=== PATIENT | female | born 1990 | race Caucasian/White ===

== ENCOUNTER 2020-04-06 03:52 | Inpatient (IN) | payer OTHER ==
[2020-04-06] MEDS ORDERED: ELECTROLYTE-148 SOLN 1,000 ML IV SCH (05:30)
[2020-04-06 05:38] LABS: BASO % 0.6 % (0-2.0); EOS % 0.8 % (0-4.5); HEMATOCRIT 37.3 % (32.4-45.2); HEMOGLOBIN 12.4 GM/dL (10.7-15.3); LYMPH % 29.2 % (8-40); MCHC 33.4 g/dl (32.0-36.0); MEAN CELL VOLUME 89.9 fl (80-96); MEAN PLT VOLUME 8.7 fl (7.5-11.1); MONO % 4.4 % (3.8-10.2); PLATELET COUNT 288 K/MM3 (134-434); RBC 4.15 M/mm3 (3.60-5.2); RDW 13.6 % (11.6-15.6); WHITE BLOOD COUNT 10.5 K/mm3 (4.0-10.0)
[2020-04-06 06:01] LABS: INR 0.91 (0.83-1.09); PROTHROMBIN TIME (PATIENT) 10.7 SEC (9.7-13.0)
[2020-04-06 06:04] LABS: ACTIVATED PTT 28.1 SECONDS (25.2-36.5)
[2020-04-06 06:06] VITALS: BMI 36.3
[2020-04-06 06:09] LABS: BLOOD UREA NITROGEN 14.8 mg/dL (7-18); CALCIUM 8.5 mg/dL (8.5-10.1); CREATININE 0.4 mg/dL (0.55-1.3); POTASSIUM 3.8 mmol/L (3.5-5.1)
[2020-04-06] MEDS ORDERED: NALOXONE HCL 0.4 MG/ML VIAL IVPUSH PRN (09:49)
[2020-04-06] MEDS ORDERED: FENTANYL/BUPIVACAINE/NS/PF - PCEA - 50 ML DISP.SYRIN EP SCH (10:00)
--- NOTE | 2020-04-06 10:58 | PD.OB.PROG ---
Past Medical History - Primary Care Physician Documenting Provider Type: Laborist - Admission Chief Complaint: pressure History of Present Illness: 30yo at term admitted in labor. Pt c/o increasing pressure and painful contractions - Nursing Documentation Maternal Triage Index: Maternal Triage Index ( Priority 4, Non-urgent MFTI) Maternal Triage Index ( Priority 4, Non-urgent MFTI) Hemorrhage Risk Assessment: Risk Level Low Risk High Level Risk Factors for None Hemorrhage Medium Level Risk Factors for None of the above Hemorrhage Low Level Risk Factors for No previous uterine incis Hemorrhage Nursing Documentation Reviewed: Yes - Past Medical History ...: 4 ...Para: 0 ...Term: 0 ...: 0 ...Spon : 3 ...Induced : 0 ...Living Children: 0 ...Multiple Gestation: 0 ...EDC by [facility]: 03/27/20 - Past Surgical History Past Surgical History: Yes: None - Smoking History Smoking history: Never smoked Have you smoked in the past 12 months: No - Alcohol/Substance Use Hx Alcohol Use: No Physical Exam - Obstetrical Vital Signs: Vital Signs Temperature 97.9 F 04/06/20 10:00 Pulse Rate 73 04/06/20 10:45 Respiratory Rate 18 04/06/20 10:45 Blood Pressure 119/67 04/06/20 10:45 O2 Sat by Pulse Oximetry (%) 99 04/06/20 10:45 - Abdominal Exam/OB Fundal Height: 40 Number of Fetuses: Single Presentation: Vertex Contractions: Yes Regularity: Regular Intensity: Moderate Monitor Mode: External Heart Rate (range): 135 Accelerations: Uniform Decelerations: None - Vaginal Exam/OB Vaginal Exam Deferred: No Speculum Exam: No Dilatation (cm): 4 Effacement (%): 80 Presentation: Vertex/Position Station: 0 - Physical Exam Musculoskeletal: Yes: WNL Extremities: Yes: WNL - Labs Lab Results: CBC, BMP 04/06/20 04:56 04/06/20 04:56 Assessment/Plan 30yo at 41+ weeks in labor desires epidural for pain category 1 tracing continue current care Dr[address] Lai aware Dr. Hanna
[2020-04-06] MEDS ORDERED: OXYTOCIN 30 UNITS in 0.9% NS 30 UNIT/500 ML INFUS.BAG IVPB SCH (11:30)
--- NOTE | 2020-04-06 11:32 | HP ---
Past Medical History - Primary Care Physician PCP:: Vamsi Hutchinson E - Admission Chief Complaint: Postdates, PROM. History of Present Illness: Postdates prgnancy. Uneventful course. GBS neg. Desired "natural" labor. History Source: Caregiver Limitations to Obtaining History: No Limitations - Past Medical History RECLAIMER: No: Alzheimer's, CVA, Dementia, Migraine, Multiple Sclerosis, Peripheral Neuropathy, Parkinson's, Seizure, Syncope, TIA, Vertigo, Other Cardiovascular: No: AFIB, Aneurysm, Aortic Insufficiency, Aortic Stenosis, CAD, CHF, Deep Vein Thrombosis, HTN, Hyperlipdemia, [place], Mitral Insufficiency, Mitral Stenosis, Murmur, Pulmonary Hypertension, Other Pulmonary: No: Asthma, Bronchitis, Cancer, COPD, O2 Dependent, Pneumonia, Previously Intubated, Pulmonary Embolus, Pulmonary Fibrosis, Sleep Apnea, Other Gastrointestinal: No: Ascites, Cancer, Constipation, Crohn's Disease, Di verticulitis, Diverticulosis, Esophageal Varices, Gastritis, GERD, GI Bleed, Hemorrhoids, Hiatal Hernia, Inflamatory Bowel Disease, Irritable Bowel Disease, Pancreatitis, Peptic Ulcer Disease, Ulcerative Colitis, Other Hepatobiliary: No: Cirrhosis, Cholelithiasis, Cholecystitis, Choledocholithiasis, Hepatitis A, Hepatitis B, Hepatitis C, Other Renal/: No: Renal Failure, Renal Inusuff, BPH, Cancer, Hematuria, Hemodialysis, Neurogenic Bladder, Renal Calculi, UTI, Other Reproductive: No: Ectopic , Endometriosis, Fibroids, PID, Polycystic Ovary Syndrome, Postmenopausal, Other ...: 4 ...Para: 0 ...Term: 0 ...: 0 ...Spon : 3 ...Induced : 0 ...Living Children: 0 ...Multiple Gestation: 0 ... Weeks Gestation by Dates: 41.3 ...[facility] Heme/Onc: No: Anemia, B12 Deficiency, Bleeding Disorder, Cancer, Current Chemotherapy, Current Radiation Therapy, Hemochromatosis, Hypercoaguable State, Myeloproliferative Synd, Sickle Cell Disease, Sickle Cell Trait, Thrombocytopenia, Other Infectious Disease: No: AIDS, C-Diff, Herpes Zoster, HIV, MRSA, STD's, Tuberculosis, VREF, Other Psych: No: Addictions, Anxiety, Bipolar, Depression, Panic, Psychosis, Schizophrenia, Other Musculoskeletal: No: Bursitis, Chronic low back pain, Hemiparesis, Hemiplegia, Osteoarthritis, Paraplegia, Other Rheumatology: No: Fibromyalgia, Gout, Lupus, Rheumatoid Arthritis, Sarcoidosis, Vasculitis, Other ENT: No: Allergic Rhinitis, Sinusitis, Other Endocrine: No: [place]'s Disease, Yung's Disease, Diabetes Insipidus, Diabetes Mellitus, Hyperparathyroidism, Hyperthyroidism, Hypothyroidism, Osteopenia, SIADH, Other Dermatology: No: Basal Cell, Cellulitis, Eczema, Melanoma, Psoriasis, Squamous Cell, Other - Past Surgical History Past Surgical History: Yes: None. No: AAA Repair, AICD, Amputation, Appe ndectomy, Arthrosocopy, AV Fistula/Graft, Bariatric Surgery, Breast Biopsy, Bypass, CABG, Carotid Endarterectomy, Cataract Removal, Cholecystectomy, Colectomy, Colonoscopy, Colostomy, Craniotomy, , Cystectomy, Hernia Repair, Hysterectomy, Ileal Conduit, Ileosotomy, Joint Replacement, Kidney Transplant, Laminectomy, Liver Transplant, Mastectomy, Nephrectomy, Oopherectomy, Orchiectomy, Permanent Pacemaker, Prostatectomy, Splenectomy, Stent, Thoracotomy, TURP, Tonsillectomy, Tubal Ligation, Upper Endoscopy, Valve Replacement, Vasectomy, Vein Stripping/Ligation Hx Myomectomy: No Hx Transabdominal Cerclage: No - Smoking History Smoking history: Never smoked Have you smoked in the past 12 months: No - Alcohol/Substance Use Hx Alcohol Use: No Home Medications - Allergies Allergies/Adverse Reactions: Allergies Allergy/AdvReac Type Severity Reaction Status Date / Time No Known Allergies Allergy Verified 04/02/20 22:58 - Home Medications Home Medications: Ambulatory Orders Dha 04/02/20 Family Medical History Family History: Unremarkable Review of Systems - Review of Systems Constitutional: reports: No Symptoms Eyes: reports: No Symptoms HENT: reports: No Symptoms Neck: reports: No Symptoms Cardiovascular: reports: No Symptoms Respiratory: reports: No Symptoms Gastrointestinal: reports: No Symptoms Genitourinary: reports: No Symptoms Breasts: reports: No Symptoms Reported Musculoskeletal: reports: No Symptoms Integumentary: reports: No Symptoms Neurological: reports: No Symptoms Endocrine: reports: No Symptoms Hematology/Lymphatic: reports: No Symptoms Psychiatric: reports: No Symptoms Physical Exam - Maternity Vital Signs: Vital Signs Temperature 97.9 F 04/06/20 10:00 Pulse Rate 71 04/06/20 11:00 Respiratory Rate 18 04/06/20 11:00 Blood Pressure 105/56 L 04/06/20 11:00 O2 Sat by Pulse Oximetry (%) 99 04/06/20 11:00 Constitutional: Yes: Well Nourished, No Distress, Calm Eyes: Yes: WNL, Conjunctiva Clear, EOM Intact HENT: Yes: WNL, Atraumatic, Normocephalic Neck: Yes: WNL, Supple, Trachea Midline Cardiovascular: Yes: WNL, Regular Rate and Rhythm Breast(s): Yes: WNL - Abdominal Exam/OB Fundal Height: 40 Number of Fetuses: Single Presentation: Vertex Contractions: Yes Intensity: Mild/Mod Monitor Mode: External Heart Rate (range): 140 Heart Rate Location: RU Category: I Accelerations: Uniform Decelerations: None - Vaginal Exam/OB Vaginal Bleeding: No Dilatation (cm): 4 Effacement (%): 50 Amniotic Membrane Status: Ruptured Nitrazine Test: Positive Presentation: Vertex/Position Station: -1 - Physical Exam Musculoskeletal: Yes: WNL Extremities: Yes: WNL - Labs Lab Results: CBC, BMP 04/06/20 04:56 04/06/20 04:56 Problem List - Problems (1) PROM (premature rupture of membranes) Code(s): O42.90 - JOANNE ROM, 7TH0 BETW RUPT & ONST LABR, UNSP WEEKS OF GEST (2) Normal labor Code(s): O80 - ENCOUNTER FOR FULL-TERM UNCOMPLICATED DELIVERY; Z37.9 - OUTCOME OF DELIVERY, UNSPECIFIED (3) Post-dates Code(s): O48.0 - POST-TERM Assessment/Plan Pt became active and asked for the epidural. Comfortable now. Needed a bolus sec. to drop in BP. Stable now. Will augment ctx.
[2020-04-06] MEDS ORDERED: FENTANYL/BUPIVACAINE/NS/PF - PCEA - 50 ML DISP.SYRIN EP ONE (13:40)
[2020-04-06] MEDS ORDERED: OXYTOCIN 30 UNITS in 0.9% NS 30 UNIT/500 ML INFUS.BAG IVPB ONE (13:44)
--- NOTE | 2020-04-06 14:16 | PN ---
Progress Note, Labor Vaginal Exam #1 Labor Exam Date: 04/06/20 Labor Exam Time: 13:30 Heart Rate (range): 140 Dilatation: 6 Effacement (%): 50 Presentation: Vertex/Position Station: -1 (Cat 2 (good variability, few lates and variable) turning to cat 1 with hydration.)
--- NOTE | 2020-04-06 16:07 | PN ---
Progress Note, Labor Vaginal Exam #3 Labor Exam Date: 04/06/20 Labor Exam Time: 15:10 Heart Rate (range): 140 Dilatation: 10 Presentation: Vertex/Position Station: +2 (ANT Pushing)
[2020-04-06] MEDS ORDERED: BISACODYL 10 MG SUPP.RECT RC PRN (16:16)
[2020-04-06] MEDS ORDERED: BENZOCAINE 20% 57 GM BOTTLE TP PRN (16:16)
[2020-04-06] MEDS ORDERED: BENZOCAINE 28 GM HEMORRHOIDAL OINTMENT TP PRN (16:16)
[2020-04-06] MEDS ORDERED: METHYLERGONOVINE MALEATE 0.2 MG/1 ML AMP IM PRN (16:16)
[2020-04-06] MEDS ORDERED: WITCH HAZEL 50% (TUCKS) 40 PAD/JAR PAD TP PRN (16:16)
--- NOTE | 2020-04-06 16:16 | PN ---
Delivery - Delivery Vaginal Delivery: No Problems, Spontaneous Type of Anesthesia: Epidural Episiotomy/Laceration: Midline EBL (cc): 250 Delivery, Single - Stages of Labor Date of Delivery: 04/06/20 Time of Delivery: 15:26 Time Placenta Delivered: 15:35 Placenta: Yes: Spontaneous, Normal Configuration - Condition of Infant Director Embalmer/Ship Engineer Present: No Infant Gender: Male Position: Left, OA - 1 Minute Total Score: 9 5 Minutes Total Score: 9 - [place] Feeding Plan Initial Plan: Exclusive throughout hospitalization Remarks - Remarks Remarks: NVSD. Small epis. Delayed clamping; divided by fob.
[2020-04-06] MEDS ORDERED: OXYTOCIN 20 UNITS in 0.9% NS 1000 ML INFUS.BAG IV ONE (16:18)
[2020-04-06] MEDS: IBUPROFEN 600 MG TABLET (FP) PO PRN ×2 (17:43→23:37)
[2020-04-06] MEDS: ACETAMINOPHEN 325 MG TABLET (FP) PO PRN ×2 (17:44→23:36)
[2020-04-07] MEDS: ACETAMINOPHEN 325 MG TABLET (FP) PO PRN ×3 (06:16→19:53)
[2020-04-07] MEDS: IBUPROFEN 600 MG TABLET (FP) PO PRN ×3 (06:17→19:52)
[2020-04-07 08:12] LABS: BASO % 0.3 % (0-2.0); EOS % 1.3 % (0-4.5); HEMATOCRIT 30.6 % (32.4-45.2); HEMOGLOBIN 10.2 GM/dL (10.7-15.3); LYMPH % 28.4 % (8-40); MCH 30.2 pg (25.7-33.7); MCHC 33.2 g/dl (32.0-36.0); MEAN CELL VOLUME 90.9 fl (80-96); MEAN PLT VOLUME 8.5 fl (7.5-11.1); MONO % 3.7 % (3.8-10.2); NEUT % 66.3 % (42.8-82.8); PLATELET COUNT 239 K/MM3 (134-434); RBC 3.37 M/mm3 (3.60-5.2); RDW 13.7 % (11.6-15.6); WHITE BLOOD COUNT 10.1 K/mm3 (4.0-10.0)
--- NOTE | 2020-04-07 09:20 | PN ---
Progress Note (short form) - Note Progress Note: PPD # 1. Feels well. Breast feeding. Happy. PE: Uterus firm; lochia WNL. Breasts soft. No CVA, extrem. T. Imp: Well. Problem List - Problems (1) PROM (premature rupture of membranes) Code(s): O42.90 - JOANNE ROM, 7TH0 BETW RUPT & ONST LABR, UNSP WEEKS OF GEST (2) Normal labor Code(s): O80 - ENCOUNTER FOR FULL-TERM UNCOMPLICATED DELIVERY; Z37.9 - OUTCOME OF DELIVERY, UNSPECIFIED (3) Post-dates Code(s): O48.0 - POST-TERM
[2020-04-07] MEDS ORDERED: SENNOSIDES/DOCUSATE COMBO (SENNA PLUS) TABLET (UD) PO PRN (22:00)
--- NOTE | 2020-04-08 06:10 | PN ---
Post Progress Note - Subjective Subjective: Feels great. Type of Delivery: Vital Signs: Vital Signs Temperature 97.6 F 04/07/20 20:11 Pulse Rate 92 H 04/07/20 20:11 Respiratory Rate 18 04/07/20 20:11 Blood Pressure 148/69 04/07/20 20:11 O2 Sat by Pulse Oximetry (%) 98 04/07/20 20:11 Breast Exam: Yes: Soft (.) Uterus: Yes: Fundus Firm Lochia: Yes: Rubra Lochia, amount: Small Extremities: Yes: Calves non-tender Perineum: Yes: Episiotomy (Healing.) Activity: Ambulating - Labs Labs: CBC WBC 10.1 K/mm3 (4.0-10.0) H 04/07/20 07:35 RBC 3.37 M/mm3 (3.60-5.2) L 04/07/20 07:35 Hgb 10.2 GM/dL (10.7-15.3) L 04/07/20 07:35 Hct 30.6 % (32.4-45.2) L D 04/07/20 07:35 MCV 90.9 fl (80-96) 04/07/20 07:35 MCH 30.2 pg (25.7-33.7) 04/07/20 07:35 MCHC 33.2 g/dl (32.0-36.0) 04/07/20 07:35 RDW 13.7 % (11.6-15.6) 04/07/20 07:35 Plt Count 239 K/MM3 (134-434) 04/07/20 07:35 MPV 8.5 fl (7.5-11.1) 04/07/20 07:35 Absolute Neuts (auto) 6.7 K/mm3 (1.5-8.0) 04/07/20 07:35 Neutrophils % 66.3 % (42.8-82.8) 04/07/20 07:35 Lymphocytes % 28.4 % (8-40) 04/07/20 07:35 Monocytes % 3.7 % (3.8-10.2) L 04/07/20 07:35 Eosinophils % 1.3 % (0-4.5) 04/07/20 07:35 Basophils % 0.3 % (0-2.0) 04/07/20 07:35 Nucleated RBC % 0 % (0-0) 04/07/20 07:35 Problem List - Problems (1) PROM (premature rupture of membranes) Code(s): O42.90 - JOANNE ROM, 7TH0 BETW RUPT & ONST LABR, UNSP WEEKS OF GEST (2) Normal labor Code(s): O80 - ENCOUNTER FOR FULL-TERM UNCOMPLICATED DELIVERY; Z37.9 - OUTCOME OF DELIVERY, UNSPECIFIED (3) Post-dates Code(s): O48.0 - POST-TERM Assessment/Plan Excellent recovery. Citrcumcision done yesterday. Instructed. Discharge.
--- NOTE | 2020-04-08 06:23 | DS ---
Physical Exam-MONORAIL HOOKER Vital Signs: Vital Signs Temperature 97.6 F 04/07/20 20:11 Pulse Rate 92 H 04/07/20 20:11 Respiratory Rate 18 04/07/20 20:11 Blood Pressure 148/69 04/07/20 20:11 O2 Sat by Pulse Oximetry (%) 98 04/07/20 20:11 Constitutional: Yes: Well Nourished, No Distress, Calm Eyes: Yes: WNL, Conjunctiva Clear, EOM Intact HENT: Yes: WNL, Atraumatic, Normocephalic Neck: Yes: WNL, Supple, Trachea Midline Cardiovascular: Yes: WNL, Regular Rate and Rhythm Respiratory: Yes: WNL, Regular, CTA Bilaterally Gastrointestinal: Yes: WNL ...Rectal Exam: Yes: Deferred Renal/: Yes: WNL External Genitalia: Yes: Normal Internal Exam Deferred: Yes ....Post : Yes: Uterus firm, Uterus non-tender Breast(s): Yes: WNL Musculoskeletal: Yes: WNL Extremities: Yes: WNL Integumentary: Yes: WNL Neurological: Yes: WNL, Alert, Oriented ...Motor Strength: WNL Psychiatric: Yes: WNL, Alert, Oriented Labs: CBC, BMP 04/07/20 07:35 04/06/20 04:56 Delivery - Delivery Vaginal Delivery: No Problems, Spontaneous Type of Anesthesia: Epidural Episiotomy/Laceration: Midline EBL (cc): 250 Delivery, Single - Stages of Labor Date 1st Stage Initiatied: 04/06/20 Time 1st Stage Initiated: 06:00 Date 2nd Stage Initiated: 04/06/20 Time 2nd Stage Initiated: 15:10 Date of Delivery: 04/06/20 Time of Delivery: 15:26 Time Placenta Delivered: 15:35 Placenta: Yes: Spontaneous, Normal Configuration - Condition of Infant Television Picture Tube Rebuilder/Psych Arnp Present: No Infant Gender: Male Weight: 8 lb 6 oz Position: Left, OA Total Hours ROM (Hrs/Mins): 13H35M - 1 Minute Total Score: 9 5 Minutes Total Score: 9 - [place] Feeding Plan Initial Plan: Exclusive throughout hospitalization - Additional Information: Circumcision done without complications. Remarks - Remarks Remarks: NVSD. Small epis. Delayed clamping; divided by fob. Discharge Summary Problems reviewed: Yes Reason For Visit: LABOR Current Active Problems Normal labor (Acute) PROM (premature rupture of membranes) (Acute) Procedures: Principal: MAIK Hospital Course: Uneventful Condition: Good - Instructions Diet, Activity, Other Instructions: Physical activity Resume your normal everyday activity as tolerated no heavy lifting or exercise until seen by your surgeon. You may walk unlimited margaret of and climb stairs. You may resume driving the car when you feel safe and comfortable behind the wheel. No sexual activity as instructed. Diet There are no dietary restrictions. Eat healthy, high-fiber foods. Drink 6 to 8 glasses of liquid each day. This will assist in keeping your bowels regular. Pain management You may take Tylenol or acetaminophen or Ibuprofen (for example, Motrin, Advil etc.) If my pain prescription medication is ordered should be taken as prescribed for moderate to severe pain. Call MD for any of the following: Severe pain not relieved by medication Fever of 101 or higher Excessive bleeding or drainage on dressing Inability to urinate Disposition: HOME - Home Medications Comprehensive Discharge Medication List: Ambulatory Orders [facility] 04/02/20
[2020-04-08] MEDS ORDERED: LEVOTHYROXINE NA 50 MCG TABLET (FP) PO SCH (07:00)
[2020-04-08 12:16] VITALS: BP 112/74; PULSE 88; TEMP 98.1
== END 2020-04-08 12:50 | disposition home or self-care (01) | DRG 560 ==
LOC: JDEL 03:52 → JLDR 04:25 → J3W 17:25
PROVIDERS: ADMIT Specialist; ATTEND Specialist
PROC: 10E0XZZ Delivery of Products of Conception, External Approach (ICD-10-PCS; principal; 2020-04-06)
PROC: 0W8NXZZ Division of Female Perineum, External Approach (ICD-10-PCS; 2020-04-06)
DX: O48.0 Post-term pregnancy (principal); O42.02 Full-term premature rupture of membranes, onset of labor within 24 hours of rupture; Z3A.41 41 weeks gestation of pregnancy; Z37.0 Single live birth
CPT/HCPCS: 36415; 59025; 59409; 80048; 85025; 85610; 85730; 86780; 86850; 86900; 86901; U0003

== ENCOUNTER 2022-11-29 19:55 | Inpatient (IN) | payer OTHER ==
[2022-11-29] MEDS ORDERED: ELECTROLYTE-148 SOLN 1,000 ML IV SCH (21:15)
[2022-11-29 21:18] LABS: BASO % 0.6 % (0-2.0); EOS % 0.8 % (0-4.5); HEMATOCRIT 35.1 % (32.4-45.2); HEMOGLOBIN 11.8 GM/dL (10.7-15.3); LYMPH % 27.8 % (8-40); MCH 29.1 pg (25.7-33.7); MCHC 33.7 g/dl (32.0-36.0); MEAN CELL VOLUME 86.6 fl (80-96); MEAN PLT VOLUME 8.5 fl (7.5-11.1); MONO % 4.8 % (3.8-10.2); PLATELET COUNT 262 10^3/uL (134-434); RBC 4.06 M/mm3 (3.60-5.2); RDW 13.3 % (11.6-15.6); WHITE BLOOD COUNT 8.5 K/mm3 (4.0-10.0)
[2022-11-29 21:30] LABS: INR 0.97 (0.83-1.09); PROTHROMBIN TIME (PATIENT) 11.2 SEC (9.7-13.0)
[2022-11-29 21:32] LABS: ACTIVATED PTT 27.3 SECONDS (25.2-36.5)
[2022-11-29 22:08] LABS: CALCIUM 8.5 mg/dL (8.5-10.1)
[2022-11-29 22:09] LABS: BLOOD UREA NITROGEN 18.4 mg/dL (7-18)
[2022-11-29 22:12] LABS: CREATININE 0.5 mg/dL (0.55-1.3)
[2022-11-29] MEDS ORDERED: FENTANYL/BUPIVACAINE/NS/PF - PCEA - 50 ML DISP.SYRIN EP ONE (22:20)
[2022-11-29 22:33] LABS: SYPHILIS W/ RPR CONF NON-REACTIVE (NONREACTIVE)
[2022-11-29] MEDS ORDERED: BUTORPHANOL TARTRATE 1 MG/ML VIAL ONE (22:53)
[2022-11-29] MEDS ORDERED: PROMETHAZINE HCL 25 MG/1 ML VIAL ONE (22:54)
[2022-11-29] MEDS ORDERED: PROMETHAZINE HCL 25 MG/1 ML VIAL IVPB ONE (23:00)
[2022-11-29] MEDS ORDERED: BUTORPHANOL TARTRATE 1 MG/ML VIAL IVPB ONE ×2 (23:00→23:24)
[2022-11-29 23:02] LABS: HIV INTERPRETATION NEGATIVE (NEGATIVE)
[2022-11-29 23:03] VITALS: BMI 36.1
[2022-11-30] MEDS ORDERED: NALOXONE HCL 0.4 MG/ML VIAL IVPUSH PRN (00:28)
[2022-11-30] MEDS ORDERED: FENTANYL/BUPIVACAINE/NS/PF - PCEA - 50 ML DISP.SYRIN EP SCH (00:30)
[2022-11-30] MEDS ORDERED: OXYTOCIN 30 UNITS in 0.9% NS 30 UNIT/500 ML INFUS.BAG IVPB SCH (00:35)
[2022-11-30] MEDS ORDERED: OXYTOCIN 30 UNITS in 0.9% NS 30 UNIT/500 ML INFUS.BAG IVPB ONE (00:39)
[2022-11-30] MEDS ORDERED: ACETAMINOPHEN 325 MG TABLET (FP) PO PRN (02:01)
[2022-11-30] MEDS ORDERED: oxyCODONE HCL 5 MG TABLET PO PRN (02:01)
[2022-11-30] MEDS ORDERED: BENZOCAINE 28 GM HEMORRHOIDAL OINTMENT TP PRN (02:01)
[2022-11-30] MEDS ORDERED: BISACODYL 10 MG SUPP.RECT RC PRN (02:01)
[2022-11-30] MEDS ORDERED: METHYLERGONOVINE MALEATE 0.2 MG/1 ML AMP IM PRN (02:01)
[2022-11-30] MEDS ORDERED: WITCH HAZEL 50% (TUCKS) 40 PAD/JAR PAD TP PRN (02:01)
[2022-11-30] MEDS ORDERED: BENZOCAINE 20% 57 GM BOTTLE TP PRN (02:01)
[2022-11-30] MEDS ORDERED: OXYTOCIN 20 UNITS in 0.9% NS 20 UNIT/1,000 ML INFUS.BAG IV SCH (02:15)
[2022-11-30] MEDS: IBUPROFEN 600 MG TABLET (FP) PO PRN ×2 (06:12→20:37)
[2022-12-01] MEDS: IBUPROFEN 600 MG TABLET (FP) PO PRN ×4 (00:45→22:49)
[2022-12-01 08:59] LABS: BASO % 0.6 % (0-2.0); EOS % 2.6 % (0-4.5); HEMATOCRIT 33.8 % (32.4-45.2); HEMOGLOBIN 11.6 GM/dL (10.7-15.3); LYMPH % 44.2 % (8-40); MCH 30.2 pg (25.7-33.7); MCHC 34.3 g/dl (32.0-36.0); MEAN CELL VOLUME 88.1 fl (80-96); MEAN PLT VOLUME 9.6 fl (7.5-11.1); MONO % 4.6 % (3.8-10.2); PLATELET COUNT 230 10^3/uL (134-434); RBC 3.84 M/mm3 (3.60-5.2); RDW 13.5 % (11.6-15.6); WHITE BLOOD COUNT 7.3 K/mm3 (4.0-10.0)
[2022-12-01] MEDS ORDERED: SENNOSIDES/DOCUSATE COMBO (SENNA PLUS) TABLET (UD) PO PRN (22:00)
[2022-12-02] MEDS: IBUPROFEN 600 MG TABLET (FP) PO PRN ×2 (08:25→13:51)
[2022-12-02 12:22] VITALS: BP 103/73; PULSE 89; RESP 17; TEMP 98
== END 2022-12-02 15:15 | disposition home or self-care (01) | DRG 560 ==
LOC: JDEL 19:55 → JLDR 20:40 → J3W 11-30 03:20
PROVIDERS: ADMIT Specialist; ATTEND Specialist
PROC: 0HQ9XZZ Repair Perineum Skin, External Approach (ICD-10-PCS; principal; 2022-11-30)
PROC: 10E0XZZ Delivery of Products of Conception, External Approach (ICD-10-PCS; 2022-11-30)
DX: O42.92 Full-term premature rupture of membranes, unspecified as to length of time between rupture and onset of labor (principal); O69.81X0 Labor and delivery complicated by cord around neck, without compression, not applicable or unspecified; O70.0 First degree perineal laceration during delivery; Z3A.39 39 weeks gestation of pregnancy; Z37.0 Single live birth
CPT/HCPCS: 36415; 80048; 85025; 85610; 85730; 86780; 86850; 86900; 86901; 87389; C9803-CS; U0003; U0005